=== PATIENT | male | born 1960 | race African-American/Black ===

== ENCOUNTER 2024-01-02 15:14 | Emergency (ER) | payer MEDICARE ==
[~2024-01-02] VITALS: Ht 170.2 cm; Wt 72.6 kg
[2024-01-02 16:46] LABS: BASOPHILS ABSOLUTE AUTO 0.07 K/mm3 (0.00-0.23); BASOPHILS PERCENT AUTO 1 % (0-2); EOSINOPHILS ABSOLUTE AUTO 0.04 K/mm3 (0.00-0.68); EOSINOPHILS PERCENT AUTO 0 % (0-6); Hematocrit 42.1 % (37.0-53.0); Hemoglobin 14.2 g/dL (13.5-17.5); IMMATURE GRAN ABSOLUTE AUTO 0.02 K/mm3 (0.00-0.10); IMMATURE GRAN PERCENT AUTO 0 % (0-1); LYMPHOCYTES ABSOLUTE AUTO 1.85 K/mm3 (0.84-5.20); LYMPHOCYTES PERCENT AUTO 15 % (21-46); MONOCYTES ABSOLUTE AUTO 0.89 K/mm3 (0.16-1.47); MONOCYTES PERCENT AUTO 7 % (4-13); Mean Corpuscular HGB 29.2 pg (26.0-34.0); Mean Corpuscular HGB Conc 33.7 g/dL (31.5-36.5); Mean Corpuscular Volume 87 fL (80-100); Mean Platelet Volume 10.8 fL (9.1-12.4); NEUTROPHILS ABSOLUTE AUTO 9.35 K/mm3 (1.96-9.15); NEUTROPHILS PERCENT AUTO 77 % (41-73); Platelet Count 130 K/mm3 (150-400); RDW Coefficient Variation 14.2 % (11.7-14.2); RDW Standard Deviation 45.4 fL (35.1-46.3); Red Blood Cell Count 4.86 M/mm3 (4.30-5.90); White Blood Cell Count 12.22 K/mm3 (4.00-11.30)
[2024-01-02 16:57] LABS: Source, Urine Clean Catch
[2024-01-02 17:08] LABS: Appearance, Urine Clear (Clear); Bilirubin, Urine Neg (Neg); Blood, Urine Neg (Neg); Color, Urine Yellow (P-Yellow); Glucose Qualitative, Urine Neg (Neg); Ketones, Urine Neg (Neg); Leukocyte Esterase, Urine Neg (Neg); Nitrite, Urine Neg (Neg); Protein, Urine 2+ (Neg); Urobilinogen, Urine NORM (Normal)
[2024-01-02 17:23] LABS: Bacteria Rare /hpf; Red Blood Cells, Urine 0-2 /hpf (0-2); Squamous Epithelial Cells Not Seen /hpf (Few); White Blood Cells, Urine 0-2 /hpf (0-5)
[2024-01-02 17:37] LABS: Albumin, Blood 3.9 g/dL (3.4-5.0); Bilirubin, Total 1.2 mg/dL (0.1-1.0); Bun/Creatinine Ratio 19.2 (12.0-20.0); Calcium, Blood 9.5 mg/dL (8.5-10.1); Creatinine, Blood 1.2 mg/dL (0.60-1.20); Globulin, Blood 3.8 g/dL (2.2-4.0); Magnesium, Blood 2.6 mg/dL (1.6-2.4); Potassium, Blood 3.8 mmol/L (3.5-5.5); Total Protein, Blood 7.7 g/dL (6.4-8.2)
[2024-01-02] MEDS ORDERED: METOPROLOL SUCC25 MG PO (17:43)
[2024-01-02] MEDS ORDERED: LISI20 PO (17:44)
[2024-01-02] MEDS ORDERED: ROSUVASTATIN CA20 MG PO (17:44)
[2024-01-02] MEDS ORDERED: HYDCHL25 PO (17:45)
[2024-01-02] MEDS ORDERED: AMLODIPINE BESYL5 MG PO (17:45)
[2024-01-02 18:30] VITALS: BP 116/72
== END 2024-01-02 18:59 | disposition home or self-care (01) ==
LOC: ER 15:14
PROVIDERS: Emergency Medicine
DX: R55 Syncope and collapse (principal); Z79.899 Other long term (current) drug therapy
CPT/HCPCS: 70450; 80053; 81001; 83605; 83735; 83880; 84484; 85025; 93005; 93010; 99285-25

== ENCOUNTER 2025-06-03 04:15 | Emergency (ER) | payer OTHER ==
[~2025-06-03] VITALS: Ht 180.3 cm; Wt 77.1 kg
[~2025-06-03 04:15] MED LIST: AMLODIPINE BESYL5 MG PO; HYDCHL25 PO; LISI20 PO; METOPROLOL SUCC25 MG PO; ROSUVASTATIN CA20 MG PO
[2025-06-03 08:20] VITALS: BP 175/86
== END 2025-06-03 08:15 | disposition home or self-care (01) ==
LOC: ER 04:15
DX: S09.90XA Unspecified injury of head, initial encounter (principal); F03.90 Unspecified dementia, unspecified severity, without behavioral disturbance, psychotic disturbance, mood disturbance, and anxiety; Z79.899 Other long term (current) drug therapy; W18.30XA Fall on same level, unspecified, initial encounter; Y92.129 Unspecified place in nursing home as the place of occurrence of the external cause
CPT/HCPCS: 70450; 72125; 99284-25